=== PATIENT | female | born 1970 | race Caucasian/White ===

== ENCOUNTER 2019-07-17 09:23 | Outpatient (CLI) | payer OTHER, SELFPAY ==
--- NOTE | 2019-07-17 09:52 | MM_ITS ---
WS: [id number] DIAGNOSTIC BILATERAL DIGITAL MAMMOGRAM WITH CAD LEFT breast ultrasound, limited HISTORY: LT BREAST MASS COMPARISON: 11/17/2013 TECHNIQUE: Bilateral craniocaudad, mediolateral oblique, and mediolateral views are submitted. Spot c ompression LEFT CC and MLO. Computer aided detection utilized. Breast composition: There are scattered areas of fibroglandular density. [place] markers placed near the 6:00 axis. There is no underlying mass or distortion. Neither breasts contain suspicious finding s. LEFT breast ultrasound. Ultrasound directed to the palpable abnormality at 5-6 o'clock. There is no underlying mass identifie d. No soft tissue thickening or shadowing. MM/[place] [id number] IMPRESSION: BI-RADS: 2-Benign FOLLOW UP: 1 Year Follow-up
--- NOTE | 2019-07-17 09:55 | US_ITS ---
WS: [id number] DIAGNOSTIC BILATERAL DIGITAL MAMMOGRAM WITH CAD LEFT breast ultrasound, limited HISTORY: LT BREAST MASS COMPARISON: 11/17/2013 TECHNIQUE: Bilateral craniocaudad, mediolateral oblique, and mediolateral views are submitted. Spot c ompression LEFT CC and MLO. Computer aided detection utilized. Breast composition: There are scattered areas of fibroglandular density. [place] markers placed near the 6:00 axis. There is no underlying mass or distortion. Neither breasts contain suspicious finding s. LEFT breast ultrasound. Ultrasound directed to the palpable abnormality at 5-6 o'clock. There is no underlying mass identifie d. No soft tissue thickening or shadowing. US/US breast LT limited* [id number] IMPRESSION: BI-RADS: 2-Benign FOLLOW UP: 1 Year Follow-up
== END 2019-07-17 09:24 | disposition home or self-care (01) ==
LOC: RADSHAW 09:29
PROVIDERS: PCP Electrodiagnostic Medicine; Visit Provider Electrodiagnostic Medicine
DX: N63.0 Unspecified lump in unspecified breast (principal)
CPT/HCPCS: 76642; 77066

== ENCOUNTER 2020-11-26 11:39 | Outpatient (CLI) | payer OTHER, SELFPAY ==
--- NOTE | 2020-11-26 11:48 | XR_ITS ---
WS: [id number] Exam: XR chest 2V* [id number] Date/Time of Exam: 11/26/2020 11:48 AM Reason For Exam: PERSISTENT COUGH Comparison 06/15/2018. The lungs are fully inflated and clear. Normal cardiomediastinal structures and bony elements. XR/XR chest 2V* [id number] IMPRESSION: 1. Normal chest.
== END 2020-11-26 11:40 | disposition home or self-care (01) ==
LOC: RAD 11:44
PROVIDERS: PCP Nurse Practitioner Family; Visit Provider Nurse Practitioner Family
DX: R05 Cough (principal)
CPT/HCPCS: 71046

== ENCOUNTER 2024-08-04 07:56 | Outpatient (CLI) | payer OTHER, SELFPAY ==
--- NOTE | 2024-08-04 08:01 | CT_ITS ---
WS: [id number] CT ABDOMEN AND PELVIS WITH CONTRAST HISTORY: LLQ PAIN TECHNIQUE: Imaging performed of the abdomen and pelvis with IV contrast. Single phase imaging of the abdomen. Coronal and sagittal reformats are submitted. All CT scans at [facility] use at least one of these dose optimization techniques: automated exposure control; mA and/or kV adjustment per patient size (includes targeted exams where dose is matched to clinical indication); or iterative reconstruction. IV CONTRAST: Omnipaque 350; 100 mL IV. Oral contrast: None DLP: 641.62 mGy.cm COMPARISON: 02/27/2008 Lower thorax: Lung bases are clear. Heart is normal size. Small hiatal hernia. Liver/biliary system: Mild hepatomegaly with no mass. Very slight central hepatobiliary dilatation is likely on the basis of the cholecystectomy. Gallbladder: Prior cholecystectomy. Pancreas: Normal size pancreas and pancreatic duct. No adjacent inflammation. Spleen: Normal size spleen. No mass or infarct. Adrenal glands: Normal. Right kidney: Normal. Left kidney: Normal size kidney. 6 mm cortical cyst upper pole. No obstruction. Aorta: Normal. Lymphadenopathy: None. Free fluid: None. GI tract: Nondistended stomach. No small bowel obstruction. No colon obstruction. Normal appendix. Moderate RIGHT colon constipation. Moderate diverticular burden in the descending and sigmoid colon. No definite diverticulitis at this time. Abdominal wall: Ventral abdominal wall hernia contains fat only. This hernia is RIGHT paraumbilical. There is an additional hernia along the LEFT lateral abdominal wall below the umbilicus level. Hernia is deep to the external oblique aponeurosis. Consistent with a spigelian hernia containing herniated fat only. Closely associated loop of colon but there is no herniation beyond the abdominal wall musculature. Pelvis: No free fluid or adenopathy within the pelvis. Bones: Unremarkable. CT/CT abdomen pelvis w con* [id number] IMPRESSION: 1. No acute abdominal or pelvic abnormalities. 2. Moderate distal colon diverticular burden but no evidence for acute diverti culitis. 3. Prior cholecystectomy. 4. No ascites or adenopathy. 5. RIGHT paraumbilical abdominal wall hernia contains fat only. New since 2007 . 6. LEFT lower quadrant spigelian hernia. Herniated fat only through the abdomi nal wall defect. New since 2007.
[2024-08-04] MEDS: iohexol 350 mg/mL 500 mL Btl (per mL) IV (08:47)
== END 2024-08-04 07:57 | disposition home or self-care (01) ==
LOC: RAD 07:59
PROVIDERS: PCP Nurse Practitioner Family; Visit Provider Nurse Practitioner Family
DX: R10.32 Left lower quadrant pain (principal); R93.89 Abnormal findings on diagnostic imaging of other specified body structures; Z90.49 Acquired absence of other specified parts of digestive tract; K43.9 Ventral hernia without obstruction or gangrene; K44.9 Diaphragmatic hernia without obstruction or gangrene; R16.0 Hepatomegaly, not elsewhere classified; N28.1 Cyst of kidney, acquired; K59.00 Constipation, unspecified
CPT/HCPCS: 74177